=== PATIENT | female | born 1965 | race African-American/Black ===

== ENCOUNTER 2018-04-09 12:36 | Observation (INO) | payer SELFPAY ==
--- NOTE | 2018-04-09 13:03 | PDOC ---
History of Present Illness - General History Source: Patient Exam Limitations: No Limitations - History of Present Illness Initial Comments: 04/09/18 14:17 The patient is a 53 year old female with no significant past medical history presents to the emergency department with heart palpitations. The patient reports an acute onset of shortness of breath and heart palpitations since 7:00 PM last night associated with substernal burning sensation. The patient reports non radiating severe constant pain, aggravated by exertion, associated with dyspnea on exertion. Denies pleuritic chest pain. Denies prior similar incident. Denies recent travel. Denies leg pain. Denies oral contractions. Denies fever, chills, cough or a headache. Denies nausea or vomiting. Denies diarrhea or constipation. Denies dysuria, hematuria, frequency or urgency to urinate. Allergies: NKDA LMP: 03/25/18 Social history: None reported Surgical history: None reported PCP: None reported. <Vaishali Lomas - Last Filed: 04/09/18 16:36> <Jonelle Sprague - Last Filed: 04/09/18 17:23> - General Chief Complaint: Palpitations Stated Complaint: PALPITATIONS (PCP SENT) Time Seen by Provider: 04/09/18 13:03 Past History <Vaishali Lomas - Last Filed: 04/09/18 16:36> - Surgical History Neurologic Surgery: No - Immunization History Immunization Up to Date: Yes - Suicide/Smoking/Psychosocial Hx Smoking History: Never smoked Hx Alcohol Use: No Substance Use Type: None <Jonelle Sprague - Last Filed: 04/09/18 17:23> - Past Medical History Allergies/Adverse Reactions: Allergies Allergy/AdvReac Type Severity Reaction Status Date / Time No Known Allergies Allergy Verified 04/09/18 12:45 Home Medications: Ambulatory Orders Albuterol Sulfate Inhaler - [Ventolin HFA Inhaler -] 1 - 2 inh PO QID #1 inhaler 09/24/14 Azithromycin [Zithromax Z-MARCELLA (5 DAYS) -] 250 mg PO ASDIR #6 tablet 09/24/14 Ibuprofen [Motrin -] 600 mg PO QID #120 tablet 09/24/14 predniSONE [Deltasone -] 40 mg PO DAILY #8 tablet 09/24/14 Review of Systems - Review of Systems Able to Perform ROS?: Yes Comments:: 04/09/18 14:19 GENERAL/CONSTITUTIONAL: No fever or chills. No weakness. HEAD, EYES, EARS, NOSE AND THROAT: No change in vision. No ear pain or discharge. No sore throat. CARDIOVASCULAR: (+) shortness of breath and palpitations. No chest pain. RESPIRATORY: (+) dyspnea on exertion. No cough, wheezing, or hemoptysis. GASTROINTESTINAL: No nausea, vomiting, diarrhea or constipation. GENITOURINARY: No dysuria, frequency, or change in urination. MUSCULOSKELETAL: No joint or muscle swelling or pain. No neck or back pain. SKIN: No rash NEUROLOGIC: No headache, vertigo, loss of consciousness, or change in strength/ sensation. ENDOCRINE: No increased thirst. No abnormal weight change. HEMATOLOGIC/LYMPHATIC: No anemia, easy bleeding, or history of blood clots. ALLERGIC/IMMUNOLOGIC: No hives or skin allergy. <Vaishali Lomas - Last Filed: 04/09/18 16:36> *Physical Exam - Vital Signs Last Vital Signs Temp Pulse Resp BP Pulse Ox 98.7 F 131 H 20 175/90 100 04/09/18 12:46 04/09/18 12:46 04/09/18 12:46 04/09/18 12:46 04/09/18 12:46 - Physical Exam Comments: 04/09/18 14:19 GENERAL: Awake, alert, and fully oriented, in no acute distress HEAD: No signs of trauma EYES: PERRLA, EOMI, sclera anicteric, conjunctiva clear ENT: Auricles normal inspection, hearing grossly normal, nares patent, oropharynx clear without exudates. Moist mucosa NECK: Normal ROM, supple, no lymphadenopathy, JVD, or masses LUNGS: (+) Mildly typenic. Breath sounds equal, clear to auscultation bilaterally. No wheezes, and no crackles HEART: (+) Tacky Cardiac. Regular rate and rhythm, normal S1 and S2, no murmurs , rubs or gallops ABDOMEN: Soft, nontender, normoactive bowel sounds. No guarding, no rebound. No masses EXTREMITIES: Normal range of motion, no edema. No clubbing or cyanosis. No cords, erythema, or tenderness NEUROLOGICAL: Cranial nerves II through XII grossly intact. Normal speech, normal gait SKIN: Warm, Dry, normal turgor, no rashes or lesions noted. <Vaishali Lomas - Last Filed: 04/09/18 16:36> - Vital Signs Last Vital Signs Temp Pulse Resp BP Pulse Ox 98.7 F 131 H 20 175/90 100 04/09/18 12:46 04/09/18 12:46 04/09/18 12:46 04/09/18 12:46 04/09/18 12:46 <Jonelle Sprague - Last Filed: 04/09/18 17:23> ED Treatment Course - LABORATORY CBC & Chemistry Diagram: 04/09/18 13:47 04/09/18 13:47 - ADDITIONAL ORDERS Additional order review: 04/09/18 13:47 RBC 4.53 MCV 70.7 L MCHC 31.2 L RDW 18.9 H MPV 8.8 Neutrophils % 52.7 Lymphocytes % 27.9 Monocytes % 16.8 H Eosinophils % 1.7 Basophils % 0.9 <Vaishali Lomas - Last Filed: 04/09/18 16:36> - LABORATORY CBC & Chemistry Diagram: 04/09/18 13:47 04/09/18 13:47 <Jonelle Sprague - Last Filed: 04/09/18 17:23> Medical Decision Making - Medical Decision Making 04/09/18 17:19 Pt presents to the ED complaining of pleuritic chest pain and tachycardia. Tachycardic on arrival to the ED. Initial differential included PE, hyperthyroidism, less likely PNA. Labs show TSH of 0.01. We decided not to do CT angio due to the iodinated contrast load. HR improved with a single dose of PO propranolol. Free T4 is only 1.36, and D dimer is elevated. Given her symptoms, however, I do not want to load her with contrast and I will treat her with lovenox and admit for observation for VQ scan in AM. <Jonelle Sprague - Last Filed: 04/09/18 17:23> *DC/Admit/Observation/Transfer - Attestations Scribe Attestion: 04/09/18 14:19 Documentation prepared by Vaishali Lomas, acting as medical technologist blood bank for Jonelle Sprague MD. <Vaishali Lomas - Last Filed: 04/09/18 16:36> - Discharge Dispostion Decision to Admit order: Yes <Jonelle Sprague - Last Filed: 04/09/18 17:23> Diagnosis at time of Disposition: Palpitations, Hyperthyroidism - Discharge Dispostion Condition at time of disposition: Good
--- NOTE | 2018-04-09 13:57 | EKG ---
Test Reason : Blood Pressure : / mmHG Vent. Rate : 119 BPM Atrial Rate : 119 BPM P-R Int : 134 ms QRS Dur : 088 ms QT Int : 326 ms P-R-T Axes : 051 051 018 degrees QTc Int : 458 ms SINUS TACHYCARDIA MINIMAL VOLTAGE CRITERIA FOR LVH, MAY BE NORMAL VARIANT BORDERLINE ECG NO PREVIOUS ECGS AVAILABLE Confirmed by BALDOMERO AMAYA MD ([id number]) on 04/09/2018 1:57:00 PM Referred By: Confirmed By:BALDOMERO AMAYA MD
[2018-04-09 14:08] LABS: BASO % 0.9 % (0-2.0); EOS % 1.7 % (0-4.5); LYMPH % 27.9 % (8-40); MCH 22.1 pg (25.7-33.7); MCHC 31.2 g/dl (32.0-36.0); MEAN CELL VOLUME 70.7 fl (80-96); MEAN PLT VOLUME 8.8 fl (7.5-11.1); MONO % 16.8 % (3.8-10.2); NEUT % 52.7 % (42.8-82.8); PLATELET COUNT 227 K/MM3 (134-434); RBC 4.53 M/mm3 (3.60-5.2); RDW 18.9 % (11.6-15.6); WHITE BLOOD COUNT 3.8 K/mm3 (4.0-10.0)
[2018-04-09 14:24] LABS: INR 1.11 (0.82-1.09); PROTHROMBIN TIME (PATIENT) 12.5 SEC (9.7-13.0)
[2018-04-09 14:26] LABS: ACTIVATED PTT 25.9 SECONDS (25.2-36.5)
[2018-04-09 14:36] LABS: ALBUMIN 3.5 g/dl (3.4-5.0); ANION GAP 10 (8-16); BILIRUBIN,TOTAL 0.5 mg/dL (0.2-1.0); BLOOD UREA NITROGEN 8 mg/dL (7-18); CALCIUM 8.5 mg/dL (8.5-10.1); CHLORIDE 104 mmol/L (98-107); CO2 26 mmol/L (21-32); CREATININE 0.6 mg/dL (0.55-1.02); GLUCOSE,RANDOM 89 mg/dL (74-106); SGPT/ALT 34 U/L (12-78); SODIUM 140 mmol/L (136-145); TOT PROT 8.2 g/dl (6.4-8.2)
[2018-04-09 14:44] LABS: ALK PHOS 80 U/L (45-117)
[2018-04-09 14:49] LABS: URINE APPEARANCE CLEAR; URINE BILIRUBIN NEGATIVE (<2.0 mg/dL); URINE COLOR COLORLESS; URINE GLUCOSE (UA) NEGATIVE (NEGATIVE); URINE KETONE NEGATIVE (NEGATIVE); URINE LEUK ESTERASE NEGATIVE (NEGATIVE); URINE NITRITE NEGATIVE (NEGATIVE); URINE PROTEIN NEGATIVE (NEGATIVE); URINE UROBILINOGEN NEGATIVE mg/dL (0.2-1.0)
[2018-04-09 15:06] LABS: POTASSIUM 3.9 mmol/L (3.5-5.1); SGOT/AST 39 U/L (15-37)
[2018-04-09] MEDS ORDERED: ENOXAPARIN NA (PORCINE) 60 MG/0.6 ML DISP.SYRIN SQ ONE ×2 (16:45→16:56)
[2018-04-09] MEDS ORDERED: ENOXAPARIN NA (PORCINE) 60 MG/0.6 ML DISP.SYRIN SQ SCH (16:45)
--- NOTE | 2018-04-09 18:03 | HP ---
CHIEF COMPLAINT: SOB and palpitations PCP: HISTORY OF PRESENT ILLNESS: 53 year-old female with no significant PMH presents to the ED with a report of acute SOB, GOINS, and heart palpitations x 18 hours. Patient reports associated chest pain described as a substernal burning sensation that is constant and aggravated with exertion. 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 She felt her heart racing and could only walk a few steps without becoming SOB. She was able to sleep, but this morning experienced the same symptoms. Patient denies diaphoresis, orthopnea, PND, and lower extremity edema. She denies weight loss/gain, heat or cold intolerance, changes in hair or nails, any type of neck or throat nodules. Patient is . She denies any history of gestational diabetes, related thyroid problems, or hypertension. ER course was notable for: (1) BP 175/90, p131 (2) TSH 0.01; free T4 wnl (3) Trop neg x 1 (4) D-dimer 764 Recent Travel: No PAST MEDICAL HISTORY: None reported PAST SURGICAL HISTORY: x 1 Social History: Smoking: never Alcohol: no Drugs: no Family History: father age 50 accident; mother 70 a&w; 2 sisters a&w; 4 children Allergies No Known Allergies Allergy (Verified 04/09/18 12:45) HOME MEDICATIONS: Home Medications Medication Instructions Recorded Albuterol Sulfate Inhaler - 1 - 2 inh PO QID #1 inhaler 09/24/14 [Ventolin HFA Inhaler -] Azithromycin [Zithromax Z-MARCELLA (5 250 mg PO ASDIR #6 tablet 09/24/14 DAYS) -] Ibuprofen [Motrin -] 600 mg PO QID #120 tablet 09/24/14 predniSONE [Deltasone -] 40 mg PO DAILY #8 tablet 09/24/14 REVIEW OF SYSTEMS CONSTITUTIONAL: Absent: fever, chills, diaphoresis, generalized weakness, malaise, loss of appetite, weight change HEENT: Absent: rhinorrhea, nasal congestion, throat pain, throat swelling, difficulty swallowing, mouth swelling, ear pain, eye pain, visual changes CARDIOVASCULAR: +palpitations, rapid heart rate, "burning" mid-sternal chest pain Absent: syncope, irregular heart rate, lightheadedness, peripheral edema RESPIRATORY: +SOB, GOINS Absent: cough, orthopnea, wheezing, stridor, hemoptysis GASTROINTESTINAL: Absent: abdominal pain, abdominal distension, nausea, vomiting, diarrhea, constipation, melena, hematochezia GENITOURINARY: Absent: dysuria, frequency, urgency, hesitancy, hematuria, flank pain, genital pain MUSCULOSKELETAL: Absent: myalgia, arthralgia, joint swelling, back pain, neck pain SKIN: Absent: rash, itching, pallor HEMATOLOGIC/IMMUNOLOGIC: Absent: easy bleeding, easy bruising, lymphadenopathy, frequent infections ENDOCRINE: Absent: unexplained weight gain, unexplained weight loss, heat intolerance, cold intolerance NEUROLOGIC: Absent: headache, focal weakness or paresthesias, dizziness, unsteady gait, seizure, mental status changes, bladder or bowel incontinence PSYCHIATRIC: Absent: anxiety, depression, suicidal or homicidal ideation, hallucinations. PHYSICAL EXAMINATION Vital Signs - 24 hr 04/09/18 04/09/18 04/09/18 12:46 15:02 17:09 Temperature 98.7 F 98.5 F Pulse Rate 131 H Pulse Rate [ 116 H 99 H Left] Respiratory 20 18 17 Rate Blood Pressure 175/90 Blood Pressure 166/82 122/78 [Left Arm] O2 Sat by Pulse 100 100 100 Oximetry (%) GENERAL: Awake, alert, and fully oriented, in no acute distress. HEAD: Normal with no signs of trauma. EYES: Pupils equal, round and reactive to light, extraocular movements intact, sclera anicteric, conjunctiva clear. No lid lag. EARS, NOSE, THROAT: Ears normal, nares patent, oropharynx clear without exudates. Moist mucous membranes. NECK: Normal range of motion, supple without lymphadenopathy, JVD, or masses. LUNGS: Breath sounds equal, clear to auscultation bilaterally. No wheezes, and no crackles. No accessory muscle use. HEART: Regular rate and rhythm, normal S1 and S2 ABDOMEN: Soft, nontender, not distended, normoactive bowel sounds, no guarding, no rebound MUSCULOSKELETAL: Normal range of motion at all joints. No bony deformities or tenderness. No CVA tenderness. UPPER EXTREMITIES: 2+ pulses, warm, well-perfused. No cyanosis. No clubbing. No peripheral edema. LOWER EXTREMITIES: 2+ pulses, warm, well-perfused. No calf tenderness. No peripheral edema. NEUROLOGICAL: Cranial nerves II-XII intact. Normal speech. Laboratory Results - last 24 hr 04/09/18 04/09/18 04/09/18 13:47 13:47 13:47 WBC 3.8 L RBC 4.53 Hgb 10.0 L Hct 32.0 L MCV 70.7 L MCH 22.1 L MCHC 31.2 L RDW 18.9 H Plt Count 227 MPV 8.8 Absolute Neuts (auto) 2.0 Neutrophils % 52.7 Lymphocytes % 27.9 Monocytes % 16.8 H Eosinophils % 1.7 Basophils % 0.9 Nucleated RBC % 0 PT with INR 12.50 INR 1.11 PTT (Actin FS) 25.9 L D-Dimer Sodium 140 Potassium 3.9 Chloride 104 Carbon Dioxide 26 Anion Gap 10 BUN 8 Creatinine 0.6 Creat Clearance w eGFR > 60 Random Glucose 89 Calcium 8.5 Total Bilirubin 0.5 AST 39 H ALT 34 Alkaline Phosphatase 80 Creatine Kinase 155 Creatine Kinase Index 0.5 CK-MB (CK-2) 0.80 Troponin I < 0.02 Total Protein 8.2 Albumin 3.5 TSH 0.01 L Free T4 Urine Color Urine Appearance Urine pH Ur Specific [place] Urine Protein Urine Glucose (UA) Urine Ketones Urine Blood Urine Nitrite Urine Bilirubin Urine Urobilinogen Ur Leukocyte Esterase Urine HCG, Qual 04/09/18 04/09/18 04/09/18 14:08 14:08 15:33 WBC RBC Hgb Hct MCV MCH MCHC RDW Plt Count MPV Absolute Neuts (auto) Neutrophils % Lymphocytes % Monocytes % Eosinophils % Basophils % Nucleated RBC % PT with INR INR PTT (Actin FS) D-Dimer Sodium Potassium Chloride Carbon Dioxide Anion Gap BUN Creatinine Creat Clearance w eGFR Random Glucose Calcium Total Bilirubin AST ALT Alkaline Phosphatase Creatine Kinase Creatine Kinase Index CK-MB (CK-2) Troponin I Total Protein Albumin TSH Free T4 1.36 Urine Color Colorless Urine Appearance Clear Urine pH 8.0 D Ur Specific [place] 1.006 Urine Protein Negative Urine Glucose (UA) Negative Urine Ketones Negative Urine Blood Negative Urine Nitrite Negative Urine Bilirubin Negative Urine Urobilinogen Negative Ur Leukocyte Esterase Negative Urine HCG, Qual Negative 04/09/18 15:33 WBC RBC Hgb Hct MCV MCH MCHC RDW Plt Count MPV Absolute Neuts (auto) Neutrophils % Lymphocytes % Monocytes % Eosinophils % Basophils % Nucleated RBC % PT with INR INR PTT (Actin FS) D-Dimer 764 H Sodium Potassium Chloride Carbon Dioxide Anion Gap BUN Creatinine Creat Clearance w eGFR Random Glucose Calcium Total Bilirubin AST ALT Alkaline Phosphatase Creatine Kinase Creatine Kinase Index CK-MB (CK-2) Troponin I Total Protein Albumin TSH Free T4 Urine Color Urine Appearance Urine pH Ur Specific [place] Urine Protein Urine Glucose (UA) Urine Ketones Urine Blood Urine Nitrite Urine Bilirubin Urine Urobilinogen Ur Leukocyte Esterase Urine HCG, Qual ASSESSMENT/PLAN: 53 year-old female with no significant PMH presented to the ED with a report of acute onset of SOB, GOINS, heart palpitations, and chest pain. Hyperthyroidism Hypertension Tachycardia SOB --uncertain etiology, no previous cardiac history, no history of thyroid disease; afebrile with no leukocytosis, clean UA, and clear CXR rendering infectious cause less likely --pulmonary --Wells score 1.5, low risk for PE; also concern for administering iodinated contrast load and tipping patient into thyroid storm --will get pulmonary input, VQ scan ordered; start therapeutic lovenox --cardiac --HR and BP improved with propranolol in ED; continue propranolol 10mg q6h --echo pending --troponin x 1 negative, two pending --serial ECGs --cardiology to follow --endocrine --TSH 0.01, free T4 wnl Visit type - Emergency Visit Emergency Visit: Yes ED Registration Date: 04/09/18 Care time: The patient presented to the Emergency Department on the above date and was hospitalized for further evaluation of their emergent condition. - New Patient This patient is new to me today: Yes Date on this admission: 04/10/18 - Critical Care Critical Care patient: No Hospitalist Screening - Colonoscopy Questionnaire Colonoscopy Questionnaire: Colonoscopy Questionnaire - Patient: 50 - 75 years old and never had a screening colonoscopy: Yes History of colon or rectal polyps, or CA: No History of IBD, Crohn's disease or UC: No History of abdominal radiation therapy as a child: No - Relative: 1 with colon or rectal CA, or polyps at age 60 or younger: Unknown Colon or rectal CA diagnosed at age 45 or younger: Unknown Multiple relatives with colon or rectal CA: Unknown - Outcome: Screening Result: Positive Screen
--- NOTE | 2018-04-10 07:12 | PN ---
Physical Exam: SUBJECTIVE: Patient seen and examined OBJECTIVE: Vital Signs Period Temp Pulse Resp BP Sys/Wall Pulse Ox Last 24 Hr 98.5 F-98.7 F 88-131 16-20 122-175/75-90 99-100 Laboratory Results - last 24 hr 04/09/18 04/09/18 04/09/18 13:47 13:47 13:47 WBC 3.8 L RBC 4.53 Hgb 10.0 L Hct 32.0 L MCV 70.7 L MCH 22.1 L MCHC 31.2 L RDW 18.9 H Plt Count 227 MPV 8.8 Absolute Neuts (auto) 2.0 Neutrophils % 52.7 Lymphocytes % 27.9 Monocytes % 16.8 H Eosinophils % 1.7 Basophils % 0.9 Nucleated RBC % 0 PT with INR 12.50 INR 1.11 PTT (Actin FS) 25.9 L D-Dimer Sodium 140 Potassium 3.9 Chloride 104 Carbon Dioxide 26 Anion Gap 10 BUN 8 Creatinine 0.6 Creat Clearance w eGFR > 60 Random Glucose 89 Calcium 8.5 Total Bilirubin 0.5 AST 39 H ALT 34 Alkaline Phosphatase 80 Creatine Kinase 155 Creatine Kinase Index 0.5 CK-MB (CK-2) 0.80 Troponin I < 0.02 Total Protein 8.2 Albumin 3.5 TSH 0.01 L Free T4 Urine Color Urine Appearance Urine pH Ur Specific [place] Urine Protein Urine Glucose (UA) Urine Ketones Urine Blood Urine Nitrite Urine Bilirubin Urine Urobilinogen Ur Leukocyte Esterase Urine HCG, Qual 04/09/18 04/09/18 04/09/18 14:08 14:08 15:33 WBC RBC Hgb Hct MCV MCH MCHC RDW Plt Count MPV Absolute Neuts (auto) Neutrophils % Lymphocytes % Monocytes % Eosinophils % Basophils % Nucleated RBC % PT with INR INR PTT (Actin FS) D-Dimer Sodium Potassium Chloride Carbon Dioxide Anion Gap BUN Creatinine Creat Clearance w eGFR Random Glucose Calcium Total Bilirubin AST ALT Alkaline Phosphatase Creatine Kinase Creatine Kinase Index CK-MB (CK-2) Troponin I Total Protein Albumin TSH Free T4 1.36 Urine Color Colorless Urine Appearance Clear Urine pH 8.0 D Ur Specific [place] 1.006 Urine Protein Negative Urine Glucose (UA) Negative Urine Ketones Negative Urine Blood Negative Urine Nitrite Negative Urine Bilirubin Negative Urine Urobilinogen Negative Ur Leukocyte Esterase Negative Urine HCG, Qual Negative 04/09/18 04/09/18 04/10/18 15:33 20:51 02:30 WBC RBC Hgb Hct MCV MCH MCHC RDW Plt Count MPV Absolute Neuts (auto) Neutrophils % Lymphocytes % Monocytes % Eosinophils % Basophils % Nucleated RBC % PT with INR INR PTT (Actin FS) D-Dimer 764 H Sodium Potassium Chloride Carbon Dioxide Anion Gap BUN Creatinine Creat Clearance w eGFR Random Glucose Calcium Total Bilirubin AST ALT Alkaline Phosphatase Creatine Kinase Creatine Kinase Index CK-MB (CK-2) Troponin I < 0.02 < 0.02 Total Protein Albumin TSH Free T4 Urine Color Urine Appearance Urine pH Ur Specific [place] Urine Protein Urine Glucose (UA) Urine Ketones Urine Blood Urine Nitrite Urine Bilirubin Urine Urobilinogen Ur Leukocyte Esterase Urine HCG, Qual Active Medications Generic Name Dose Route Start Last Admin Trade Name Alber PRN Reason Stop Dose Admin Enoxaparin Sodium 60 mg 04/10/18 10:00 Lovenox - SQ BID JAQUELIN Propranolol HCl 10 mg 04/09/18 19:00 04/10/18 06:15 Inderal - PO 10 mg Q6HPO JAQUELIN Administration ASSESSMENT/PLAN: 53 year-old female with no significant PMH presented to the ED with a report of acute onset of SOB, GOINS, heart palpitations, and chest pain. Hyperthyroidism Hypertension Tachycardia SOB --uncertain etiology, no previous cardiac history, no history of thyroid disease; afebrile with no leukocytosis, clean UA, and clear CXR rendering infectious cause less likely --pulmonary --Wells score 1.5, low risk for PE; also concern for administering iodinated contrast load and tipping patient into thyroid storm --will get pulmonary input, VQ scan ordered; start therapeutic lovenox --cardiac --HR and BP improved with propranolol in ED; continue propranolol 10mg q6h --echo pending --troponin x 1 negative, two pending --serial ECGs --cardiology to follow --endocrine --TSH 0.01, free T4 wnl --endocrine consult Visit type - Emergency Visit Emergency Visit: Yes ED Registration Date: 04/09/18 Care time: The patient presented to the Emergency Department on the above date and was hospitalized for further evaluation of their emergent condition. - New Patient This patient is new to me today: Yes Date on this admission: 04/10/18 - Critical Care Critical Care patient: No
[2018-04-10 07:21] LABS: BASO % 0.2 % (0-2.0); EOS % 4.2 % (0-4.5); HEMATOCRIT 31.6 % (32.4-45.2); HEMOGLOBIN 9.9 GM/dL (10.7-15.3); LYMPH % 40.9 % (8-40); MCH 22.2 pg (25.7-33.7); MCHC 31.2 g/dl (32.0-36.0); MEAN PLT VOLUME 9.1 fl (7.5-11.1); MONO % 19.3 % (3.8-10.2); NEUT % 35.4 % (42.8-82.8); PLATELET COUNT 206 K/MM3 (134-434); RBC 4.45 M/mm3 (3.60-5.2); RDW 18.9 % (11.6-15.6); WHITE BLOOD COUNT 2.9 K/mm3 (4.0-10.0)
--- NOTE | 2018-04-10 07:58 | CON.CARD ---
Cardiology Consult (text) - Consultation Consultation Note: Cardiology Consult Dictated IMP: Sinus tachycardia Exertional dyspnea and chest tightness Hyperthyroidism Elevated D-dimer REC: 1. Echo for assessment of LV/RV fx, pericardium and assess for PHTN 2. V/Q scan to rule out pulmonary embolism 3. Endocrine and Pulmonary Consultation
--- NOTE | 2018-04-10 08:46 | CONS ---
CARDIOLOGY CONSULTATION DATE OF CONSULTATION: 04/10/2018 The consultation is requested by Lizett Sullivan NP, for evaluation of sinus tachycardia. HISTORY OF PRESENT ILLNESS: The patient is a 53-year-old female with no significant past medical history who walked in to my office yesterday, asking to be seen for one day of exertional dyspnea and associated chest discomfort. The patient described approximately 24 hours of worsening shortness of breath with exertion, exertional palpitations associated with some chest tightness. She denied any recent viral or upper respiratory illnesses, no recent long airplane travel. She denied edema, PND, orthopnea or syncope. She has not had any prior cardiac history. She denied fevers, chills or weight loss. PAST MEDICAL HISTORY: Denies chronic medical problems. No history of diabetes, coronary disease, hypertension or hyperlipidemia. SURGICAL HISTORY: Prior . ALLERGIES: None. CHRONIC MEDICATIONS: None. FAMILY HISTORY: There was no history of early CAD, sudden cardiac or venous thromboembolism. SOCIAL HISTORY: . She was accompanied to the office by her . She has three children. She denies alcohol, tobacco or illicit drug use. She is originally from [facility]. PHYSICAL EXAMINATION: General: Currently, comfortable, in no acute distress. Vital signs: Afebrile. Temperature 98.7, pulse 116, sinus tachycardia ranging from 91-116, blood pressure 122/75, oxygen saturation 100% on room air. Eyes: She is anicteric. Neck: There is no elevation of the jugular venous pulsation. No carotid bruits. Carotid pulses 2+. Heart: S1, 2. Regular rate, rhythm. No murmurs, rubs or gallops. Chest: Clear bilaterally with no wheezing, rales or rhonchi. Abdomen: Soft. Nontender. No renal bruits. Extremities: Warm. No pitting edema. Chest x-ray: No acute pathology and no change from September 2014. EKG: Sinus tachycardia, at 119 beats per minute, with borderline LVH. Lower extremity venous duplex: No DVT bilaterally. LABORATORIES: White count 2.9, hematocrit 31.6, platelets 206. INR 1.11, D-dimer 764. Sodium 140, potassium 3.9, BUN 8, creatinine 0.6, AST 39, ALT 34, alkaline phosphatase 80. CK 155, troponin is negative x3 sets. TSH is 0.01, free T4 of 1.36. Urinalysis was negative. IMPRESSION: 1. Sinus tachycardia. 2. Exertional dyspnea and chest tightness. 3. Hyperthyroidism. 4. Elevated D-dimer; nonspecific finding. RECOMMENDATIONS: 1. Echocardiogram for assessment of LV/RV function, pericardium, and to assess for pulmonary hypertension. 2. VQ scan to rule out pulmonary embolism. Patient has been given Lovenox while diagnostic studies are pending. CTA was not performed, in order to avoid the intravenous dye load of contrast which may affect the thyroid function. 3. Endocrine and pulmonary consultations. Thank you for the consultation. BARBRA CANTOR M.D. [id number]
[2018-04-10] MEDS: ENOXAPARIN NA (PORCINE) 60 MG/0.6 ML DISP.SYRIN SQ SCH ×2 (09:37→21:00)
[2018-04-10] MEDS ORDERED: ENOXAPARIN NA (PORCINE) 60 MG/0.6 ML DISP.SYRIN SQ ONE (09:37)
[2018-04-10 09:57] LABS: ALBUMIN 2.9 g/dl (3.4-5.0); ANION GAP 12 (8-16); BILIRUBIN,TOTAL 0.5 mg/dL (0.2-1.0); BLOOD UREA NITROGEN 10 mg/dL (7-18); CALCIUM 7.5 mg/dL (8.5-10.1); CHLORIDE 111 mmol/L (98-107); CO2 19 mmol/L (21-32); CREATININE 0.6 mg/dL (0.55-1.02); GLUCOSE,RANDOM 77 mg/dL (74-106); MAGNESIUM 1.9 mg/dL (1.8-2.4); PHOSPHOROUS 4.2 mg/dL (2.5-4.9); POTASSIUM 3.5 mmol/L (3.5-5.1); SGOT/AST 33 U/L (15-37); SGPT/ALT 25 U/L (12-78); SODIUM 142 mmol/L (136-145); TOT PROT 6.9 g/dl (6.4-8.2)
[2018-04-10 09:58] LABS: ALK PHOS 64 U/L (45-117)
[2018-04-10] MEDS ORDERED: predniSONE 20 MG TABLET (UD) PO SCH (10:00)
[2018-04-10 12:29] LABS: ALBUMIN 3.4 g/dl (3.4-5.0); ALK PHOS 73 U/L (45-117); ANION GAP 10 (8-16); BILIRUBIN,TOTAL 0.6 mg/dL (0.2-1.0); BLOOD UREA NITROGEN 9 mg/dL (7-18); CALCIUM 8.5 mg/dL (8.5-10.1); CHLORIDE 107 mmol/L (98-107); CO2 24 mmol/L (21-32); CREATININE 0.6 mg/dL (0.55-1.02); GLUCOSE,RANDOM 84 mg/dL (74-106); MAGNESIUM 2.2 mg/dL (1.8-2.4); PHOSPHOROUS 3.7 mg/dL (2.5-4.9); POTASSIUM 3.6 mmol/L (3.5-5.1); SGOT/AST 19 U/L (15-37); SGPT/ALT 28 U/L (12-78); SODIUM 141 mmol/L (136-145); TOT PROT 7.9 g/dl (6.4-8.2)
--- NOTE | 2018-04-10 16:16 | CON.PULM ---
Consult Consult Specialty:: PULM/CCM Referred by:: GEOVANI Reason for Consultation:: Elevated D Dimer - History of Present Illness Chief Complaint: Dyspnea on exertion / CP History of Present Illness: 53 F, admitted via the ER due to SOB, GOINS, and heart palpitations x 18 hours. She reports associated substernal chest pain described as burning. No recent travel history. No prolonged period of immobilzation. No recent surgery within 4 weeks (C section 8 years ago). No previous personal or family history of VTE. Patient found to have abnormal TFTs (TSH 0.01) and given Propranolol with significant improvement in her symptoms. ECHO is normal. She does not have tachycardia at this time and her saturation on RA is 99%. Her CP has almost completely resolved. Her Modified Wells Score would predict no VTE. CXR: No acute process. - History Source History Provided By: Patient Limitations to Obtaining History: No Limitations - Past Medical History Pulmonary: No: Asthma, COPD, Pneumonia, Previously Intubated, Pulmonary Embolus , Pulmonary Fibrosis, Sleep Apnea - Alcohol/Substance Use Hx Alcohol Use: No - Smoking History Smoking history: Never smoked Home Medications - Allergies Allergies/Adverse Reactions: Allergies Allergy/AdvReac Type Severity Reaction Status Date / Time No Known Allergies Allergy Verified 04/09/18 12:45 - Home Medications Home Medications: Ambulatory Orders NK [No Known Home Medication] 04/09/18 Review of Systems - Review of Systems Constitutional: reports: No Symptoms. denies: Chills, Fever Eyes: reports: No Symptoms HENT: reports: No Symptoms Neck: reports: No Symptoms Cardiovascular: reports: Chest Pain, Palpitations, Shortness of Breath. denies : Edema Respiratory: reports: SOB, SOB on Exertion. denies: Cough, Exercise Intolerance , Hemoptysis, Orthopnea, PND, Snoring, Wheezing Gastrointestinal: reports: No Symptoms Genitourinary: reports: No Symptoms Breasts: reports: No Symptoms Reported Musculoskeletal: reports: No Symptoms Integumentary: reports: No Symptoms Neurological: reports: No Symptoms Endocrine: reports: No Symptoms Hematology/Lymphatic: reports: No Symptoms Psychiatric: reports: No Symptoms Physical Exam Vital Sings: Vital Signs Temperature 98 F 04/10/18 14:00 Pulse Rate 84 04/10/18 14:00 Respiratory Rate 16 04/10/18 14:00 Blood Pressure 126/74 04/10/18 14:00 O2 Sat by Pulse Oximetry (%) 99 04/10/18 11:11 Constitutional: Yes: No Distress, Calm Eyes: Yes: Conjunctiva Clear, EOM Intact HENT: Yes: Atraumatic, Normocephalic Neck: Yes: Supple, Trachea Midline Cardiovascular: Yes: Regular Rate and Rhythm Respiratory: Yes: CTA Bilaterally. No: Accessory Muscle Use, Rales, Rhonchi, SOB, SOB on Exertion, Stridor, Tachypnea, Wheezes ...Inspection: Yes: WNL ...Clubbing: No Gastrointestinal: Yes: Normal Bowel Sounds, Soft Renal/: Yes: WNL Musculoskeletal: Yes: WNL Extremities: Yes: WNL Edema: No Peripheral Pulses WNL: Yes Integumentary: Yes: WNL Neurological: Yes: WNL, Alert, Oriented ...Motor Strength: WNL Psychiatric: Yes: WNL, Alert, Oriented Labs: CBC, BMP 04/10/18 06:20 04/10/18 06:20 Imaging - Results Chest X-ray: Report Reviewed, Image Reviewed Problem List - Problems (1) Hyperthyroidism Code(s): E05.90 - THYROTOXICOSIS, UNSP WITHOUT THYROTOXIC CRISIS OR STORM (2) Palpitations Code(s): R00.2 - PALPITATIONS Assessment/Plan At this point the patient is clinically improved. She has no risk factors or previous personal or family history of VTE. Her modified Wells score would predict "very unlikely" PE. Her symptoms are likely attributed to Hyperthyroidism and she has had significant clinical improvement with propranolol. She does not have tachycardia at this time and her saturation is 99% on RA. There is no indication for further workup/imaging. There is no Pulmonary contraindication for D/C home with followup with Endocrine to further elucidate/treat her hyperthyroidism. Thank you. Dr Aguirre
[2018-04-10 17:22] VITALS: BMI 28.5
[2018-04-10] MEDS ORDERED: ACETAMINOPHEN 325 MG TABLET (FP) PO PRN (18:23)
[2018-04-11] MEDS ORDERED: PT OWN MED DRAWER 7, Y5N ONE (09:03)
[2018-04-11] MEDS: ENOXAPARIN NA (PORCINE) 60 MG/0.6 ML DISP.SYRIN SQ SCH (09:42)
--- NOTE | 2018-04-11 11:59 | PN ---
Progress Note, Physician Chief Complaint: Pt is A&Ox3; sitting up in bed; feels much better (no more sharp chest pains; no palpitations) since starting propranolol. History of Present Illness: The patient is a 53 year old black female (mary Joyner) with no significant PMHx presents to the emergency department with heart palpitations. The patient reports an acute onset of shortness of breath and heart palpitations since 7:00 PM last night associated with substernal burning and stabbing sensation. The patient reports non radiating severe pain, aggravated by exertion, associated with dyspnea on exertion. Pt has regular menses. Denies recent travel or surgery (only surgery was C section years ago). Never smoked; no alcohol or illicit drugs. No family hx CAD, CVA, or sudden . No severe childhood illnesses. No asthma. Works as [employer]; on her feet all day; walks to get transport to work; until the past 24 hours, had no dyspnea, chest pain, or palpitations. - Current Medication List Current Medications: Active Medications Acetaminophen (Tylenol -) 650 mg PO Q6H PRN PRN Reason: PAIN LEVEL 1-5 Last Admin: 04/10/18 18:27 Dose: 650 mg Enoxaparin Sodium (Lovenox -) 60 mg SQ BID [facility] Last Admin: 04/11/18 09:42 Dose: 60 mg Propranolol HCl (Inderal -) 10 mg PO Q6HPO [facility] Last Admin: 04/11/18 05:53 Dose: 10 mg - Objective Vital Signs: Vital Signs Temperature 98.6 F 04/11/18 10:00 Pulse Rate 90 04/11/18 10:00 Respiratory Rate 18 04/11/18 10:00 Blood Pressure 135/79 04/11/18 10:00 O2 Sat by Pulse Oximetry (%) 98 04/11/18 10:00 Constitutional: Yes: No Distress Eyes: Yes: WNL HENT: Yes: WNL Neck: Yes: WNL Cardiovascular: Yes: WNL Respiratory: Yes: WNL Gastrointestinal: Yes: WNL ...Rectal Exam: Yes: Deferred Genitourinary: No: Anuria Breast(s): Yes: WNL Musculoskeletal: Yes: WNL Extremities: Yes: WNL Edema: No Peripheral Pulses WNL: Yes Integumentary: Yes: WNL Neurological: Yes: WNL Psychiatric: Yes: WNL Labs: CBC, BMP 04/10/18 06:20 04/10/18 06:20 INR, PTT INR 1.11 (0.82-1.09) 04/09/18 13:47 Abnormal Lab Results 04/11/18 05:50 TSH 0.02 L - ....Imaging Chest X-ray: Image Reviewed (no acute pathology) Ultrasound: Image Reviewed (ECHO: normal LVEF; mild ND and TR) EKG: Image Reviewed (sinus tachycardia) Problem List - Problems (1) Hyperthyroidism Assessment/Plan: Propranolol started; may increase dose. F/u with level vial grinder. f/u lipid panel (though may be altered by thyroid condition). ECHO: normal LVEF; mild TR, MR, and ND As noted by Dr. Aguirre, likelihood of PE is low. Code(s): E05.90 - THYROTOXICOSIS, UNSP WITHOUT THYROTOXIC CRISIS OR STORM (2) Palpitations Assessment/Plan: lessened since starting propranolol. Code(s): R00.2 - PALPITATIONS
[2018-04-11 13:25] LABS: CHOLESTEROL 132 mg/dL (50-200); HDL CHOLESTEROL 41 mg/dL (40-60); TRIGLYCERIDES 166 mg/dL (35-160)
--- NOTE | 2018-04-11 13:35 | PN ---
Physical Exam: SUBJECTIVE: Patient seen and examined at bedside. Feels well, no palpitations, no chest pain. OBJECTIVE: Vital Signs Period Temp Pulse Resp BP Sys/Wall Pulse Ox Last 24 Hr 97.6 F-99.1 F 76-90 16-20 126-138/72-94 98-99 GENERAL: The patient is awake, alert, and fully oriented, in no acute distress. LUNGS: Breath sounds equal, clear to auscultation bilaterally, no wheezes, no crackles, no accessory muscle use. HEART: Regular rate and rhythm, S1, S2 ABDOMEN: Soft, nontender, nondistended, EXTREMITIES: 2+ pulses, warm, well-perfused, no edema. NEUROLOGICAL: Cranial nerves II through XII grossly intact. Normal speech, Laboratory Results - last 24 hr 04/11/18 05:50 TSH 0.02 L Free T4 1.12 Current Medications Generic Name Dose Route Start Last Admin Trade Name Freq PRN Reason Stop Dose Admin Acetaminophen 650 mg 04/10/18 18:23 04/10/18 18:27 Tylenol - PO 650 mg Q6H PRN Administration PAIN LEVEL 1-5 Propranolol HCl 10 mg 04/10/18 18:00 04/11/18 12:31 Inderal - PO 10 mg Q6HPO JAQUELIN Administration ASSESSMENT/PLAN: 53 year-old female with no significant PMH presented to the ED with a report of acute onset of SOB, GOINS, heart palpitations, and chest pain. Hyperthyroidism --hypertension, tachycardia, palpitations and SOB have all resolved on propranolol 60mg q6h --Echo: LV normal; RV normal; mild MR; mild TR --troponins neg x 3 --Wells score 1.5, low risk for PE; seen and evaluated by pulmonology, no further workup; full dose lovenox dc'd --repeat TSH no change, thyroid studies pending --endocrine following FEN Fluids: PO intake adequate Electrolytes: replete as indicated Nutrition: regular diet DVT prophylaxis: subq lovenox Dispo: continues to require inpatient care. Full code. Visit type - Emergency Visit Emergency Visit: Yes ED Registration Date: 04/09/18 Care time: The patient presented to the Emergency Department on the above date and was hospitalized for further evaluation of their emergent condition. - New Patient This patient is new to me today: No - Critical Care Critical Care patient: No
--- NOTE | 2018-04-11 15:26 | CONSULT ---
Consult Consult Specialty:: Endocrinology Referred by:: Lizett Sullivan Reason for Consultation:: Abnormal TFT - History of Present Illness Chief Complaint: Palpitations History of Present Illness: This is a 53 year-old female with no significant PMH who presented to the ED with c/o acute SOB, GOINS, and heart palpitations x 18 hours. Patient reported associated chest pain described as a substernal burning sensation that is constant and aggravated with exertion. 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 She felt her heart racing and could only walk a few steps without becoming SOB. She was able to sleep, but in the morning experienced the same symptoms. Patient denied diaphoresis, orthopnea, PND, and lower extremity edema. Pt was found to be tachycardic with low TSH. Was treasted with Propranolon with improvement in sympotms. She denies any weight loss/gain, heat or cold intolerance, changes in hair or neck pain, anxiety, tremors of hand. She also denies any family h/o thyroid disorder. Pt referred for management of abnormal TFT, TSH 0.01 with normal FT4. - Past Medical History Pulmonary: No: Asthma, COPD, Pneumonia, Previously Intubated, Pulmonary Embolus , Pulmonary Fibrosis, Sleep Apnea ...LMP: 03/25/18 ...: No - Alcohol/Substance Use Hx Alcohol Use: No - Smoking History Smoking history: Never smoked Home Medications - Allergies Allergies/Adverse Reactions: Allergies Allergy/AdvReac Type Severity Reaction Status Date / Time No Known Allergies Allergy Verified 04/09/18 12:45 - Home Medications Home Medications: Ambulatory Orders NK [No Known Home Medication] 04/09/18 Family Disease History - Family Disease History Other Family History: No family h/o thyroid disorder Review of Systems - Review of Systems Constitutional: reports: No Symptoms Eyes: reports: No Symptoms HENT: reports: No Symptoms Neck: reports: No Symptoms Cardiovascular: reports: No Symptoms Respiratory: reports: No Symptoms Gastrointestinal: reports: No Symptoms Genitourinary: reports: No Symptoms Musculoskeletal: reports: No Symptoms Neurological: reports: No Symptoms Endocrine: reports: No Symptoms Hematology/Lymphatic: reports: No Symptoms Physical Exam Vital Signs: Vital Signs Temperature 98.6 F 04/11/18 10:00 Pulse Rate 90 04/11/18 10:00 Respiratory Rate 18 04/11/18 10:00 Blood Pressure 135/79 04/11/18 10:00 O2 Sat by Pulse Oximetry (%) 98 04/11/18 10:00 Constitutional: Yes: No Distress, Calm Eyes: Yes: Conjunctiva Clear, EOM Intact HENT: Yes: Atraumatic, Normocephalic Neck: Yes: Supple, Trachea Midline, Other (No thyromegaly, No Bruit) Cardiovascular: Yes: Regular Rate and Rhythm Respiratory: Yes: Regular, CTA Bilaterally Gastrointestinal: Yes: Normal Bowel Sounds, Soft Musculoskeletal: Yes: WNL Extremities: Yes: WNL, Other (No tremors of hands) Edema: No Labs: CBC, BMP 04/10/18 06:20 04/10/18 06:20 Assessment/Plan AP; Palpitations: Continue Propranolol Abnormal TFT: subclinical vs overt hyperthyroidism TSH 0.01 and 0.02 FT4 1.36 and 1.12 FT3, TSI, TPO pending Absence of neck pain makes subacute thyroiditis less likely As thionamides used for treatment of hyperthyroidism can also cause cytopenia, it would be better to address the issue before starting the medication. Leukopenia: Consider Hematology evaluation Will f/u
[2018-04-12] MEDS ORDERED: PT OWN MED DRAWER 7, Y5N ONE ×2 (01:04→05:44)
--- NOTE | 2018-04-12 07:25 | DS ---
Physical Exam: SUBJECTIVE: Patient seen and examined OBJECTIVE: Vital Signs Period Temp Pulse Resp BP Sys/Wall Pulse Ox Last 24 Hr 98 F-99.6 F 83-90 16-18 130-138/76-81 98-99 PHYSICAL EXAM GENERAL: The patient is awake, alert, and fully oriented, in no acute distress. HEAD: Normal with no signs of trauma. EYES: PERRL, extraocular movements intact, sclera anicteric, conjunctiva clear. ENT: Ears normal, nares patent, oropharynx clear without exudates, moist mucous membranes. NECK: Trachea midline, full range of motion, supple. LUNGS: Breath sounds equal, clear to auscultation bilaterally, no wheezes, no crackles, no accessory muscle use. HEART: Regular rate and rhythm, S1, S2 without murmur, rub or gallop. ABDOMEN: Soft, nontender, nondistended, normoactive bowel sounds, no guarding, no rebound, no hepatosplenomegaly, no masses. EXTREMITIES: 2+ pulses, warm, well-perfused, no edema. NEUROLOGICAL: Cranial nerves II through XII grossly intact. Normal speech, gait not observed. PSYCH: Normal mood, normal affect. SKIN: Warm, dry, normal turgor, no rashes or lesions noted. LABS Laboratory Results - last 24 hr 04/11/18 04/11/18 05:50 12:40 Triglycerides 166 H Cholesterol 132 Total LDL Cholesterol 77 HDL Cholesterol 41 TSH 0.02 L Free T4 1.12 HOSPITAL COURSE: Date of Admission:04/09/18 Date of Discharge: 04/12/18 Minutes to complete discharge: 35 Discharge Summary Reason For Visit: HYPERTHYROIDISM Current Active Problems Hyperthyroidism (Acute) Palpitations (Acute) Condition: Improved - Instructions Diet, Activity, Other Instructions: You will need to follow closely with Dr. Haque for continued treatment of your hyperthyroidism. You will also need to be seen by a egg processing supervisor. We have enclosed contact information for the office of Dr. Porter Moss. Please make appointments to be seen by both of these providers within one week of your discharge. A prescription has been sent to your pharmacy for propranolol. Take this medication as directed. Referrals: Porter Moss MD [Staff Physician] - 1 Week Ji Haque MD [Staff Physician] - 1 Week Disposition: HOME - Home Medications Comprehensive Discharge Medication List: Ambulatory Orders propRANOLol HCL [Inderal -] 10 mg PO Q6HPO #120 tablet 04/12/18 This patient is new to me today: No Emergency Visit: Yes ED Registration Date: 04/09/18 Care time: The patient presented to the Emergency Department on the above date and was hospitalized for further evaluation of their emergent condition. Critical Care patient: No - Discharge Referral Referred to [facility] Med P.C.: No
[2018-04-12 07:35] VITALS: BP 134/80; PULSE 78; TEMP 99.1
[2018-04-12] MEDS ORDERED: ENOXAPARIN NA (PORCINE) 40 MG/0.4 ML DISP.SYRIN SQ SCH (10:00)
--- NOTE | 2018-04-13 22:07 | EKG ---
Test Reason : Blood Pressure : / mmHG Vent. Rate : 090 BPM Atrial Rate : 090 BPM P-R Int : 136 ms QRS Dur : 090 ms QT Int : 356 ms P-R-T Axes : 095 051 035 degrees QTc Int : 435 ms NORMAL SINUS RHYTHM MODERATE VOLTAGE CRITERIA FOR LVH, MAY BE NORMAL VARIANT BORDERLINE ECG WHEN COMPARED WITH ECG OF 09-APR-2018 12:55, Confirmed by ENRICO ALCANTAR MD ([id number]) on 04/13/2018 10:07:12 PM Referred By: Confirmed By:ENRICO ALCANTAR MD
[2018-04-14 08:12] LABS: THYROID STIM IMMUNOGLOBULIN <0.10 IU/L (0.00-0.55)
== END 2018-04-12 09:17 | disposition home or self-care (01) ==
LOC: JER 12:36 → JERBED 17:23 → J4S 04-10 16:36
PROVIDERS: ADMIT Hospitalist; ATTEND Nurse Practitioner Acute Care
PROC: 3E013GC Introduction of Other Therapeutic Substance into Subcutaneous Tissue, Percutaneous Approach (ICD-10-PCS; principal; 2018-04-09)
DX: E05.90 Thyrotoxicosis, unspecified without thyrotoxic crisis or storm (principal); R00.2 Palpitations; R00.0 Tachycardia, unspecified; R06.02 Shortness of breath; R79.1 Abnormal coagulation profile; R07.89 Other chest pain; D72.819 Decreased white blood cell count, unspecified
CPT/HCPCS: 36415; 71045-TC-FY; 80053; 80061; 81003; 82550; 82553; 83721; 83735; 84100; 84439; 84443; 84445; 84481; 84484; 84703; 85025; 85379; 85610; 85651; 85730; 86376; 93005; 93010; 93306-TC; 93970-TC; 99285-25; G0378